=== PATIENT | female | born 1950 | race Caucasian/White ===

== ENCOUNTER 2016-06-29 14:48 | Outpatient (CLI) | payer BC | END 2016-06-29 14:49 | disposition home or self-care (01) | DX: Z12.31 Encounter for screening mammogram for malignant neoplasm of breast (principal) ==

== ENCOUNTER 2016-09-21 12:22 | Outpatient (CLI) | payer BC ==
--- NOTE | 2016-09-22 07:36 | XRAY Report ---
RIGHT ANKLE, THREE VIEWS: 09/21/2016 CLINICAL HISTORY: Pain. FINDINGS: Moderate degree of narrowing of the right ankle joint is seen. Spurring is seen along the inferior aspect of the medial malleolus. Spurring is seen along the lateral aspect of the distal ri ght fibular shaft. Mild subchondral cyst formation is seen in the talar dome, especially medially. Small plantar calcaneal spur is noted. IMPRESSION: 1. MODERATE DEGREE OF OSTEOARTHRITIS OF THE RIGHT ANKLE. 2. SMALL PLANTAR CALCANEAL SPUR IS SEEN. 3. EXAMINATION IS NEGATIVE FOR ACUTE FRACTURE. COMMENT: Dr. Degroot, patient's physician, was notified of the above findings on 09/21/2016 at 5:3 0 p.m. JOB #: [id number] EXT JOB #:[id number]
== END 2016-09-21 12:23 | disposition home or self-care (01) ==
LOC: DI 12:22
PROVIDERS: ATTEND Internal Medicine
DX: M19.071 Primary osteoarthritis, right ankle and foot (principal); M77.31 Calcaneal spur, right foot

== ENCOUNTER 2016-09-25 11:23 | Emergency (ER) | payer BC ==
--- NOTE | 2016-09-25 11:42 | ED Physician Documentation ---
PD HPI CHEST PAIN - Stated complaint Stated Complaint: CHEST PX - History obtained from History obtained from: Patient - History of Present Illness Timing - onset: How many hours ago (2) Timing - onset during: Exertion Timing - duration: Minutes (5) Timing - details: Now resolved Quality: Dull Location: Substernal Improved by: Rest Associated symptoms: Nausea. No: Shortness of air, Diaphoresis, Vomiting Similar symptoms before: No diagnosis - Additional information Additional information: The patient is a pleasant 66-year-old female who presents after a five-minute episode of substernal chest discomfort that occurred about 2 hours prior to arrival while performing exercises in an exercise class. She describes it as a dull aching sensation in the substernal region. She reports associated nausea, but denies vomiting, diaphoresis, or shortness of breath. Her symptoms lasted for about 5 minutes and resolved spontaneously with rest. After her symptoms resolved she rejoined the class and finished the exercises without recurrent symptoms. She reports having similar episodes 3 times in the past 2 weeks. She denies any recent fever, cough, abdominal pain, or vomiting. Cardiac risk factors are positive for insulin-dependent diabetes, hypertension, and borderline hyperlipidemia. She does not smoke cigarettes, and has no known family history of early NE. Review of Systems Constitutional: denies: Fever, Fatigue Ears: denies: Tinnitus/ringing Nose: denies: Congestion Throat: denies: Sore throat Cardiac: reports: Chest pain / pressure. denies: Palpitations Respiratory: denies: Dyspnea, Cough GI: denies: Abdominal Pain, Vomiting, Diarrhea : denies: Dysuria Skin: denies: Rash Musculoskeletal: denies: Back pain, Extremity pain Neurologic: denies: Headache PD PAST MEDICAL HISTORY - Past Medical History Cardiovascular: Hypertension, High cholesterol, Murmur Endocrine/Autoimmune: Type 2 diabetes HEENT: Other - Present Medications Home Medications: Ambulatory Orders Medication Instructions Recorded Confirmed Atorvastatin [Lipitor] 10 mg PO DAILY 07/29/15 04/30/16 Insulin Lispro [Humalog] 1 - 4 unit SUBQ TIDWM 07/29/15 04/30/16 Meclizine HCl [Antivert] 25 mg PO QID PRN #15 tablet 07/29/15 04/30/16 Ondansetron HCl [Zofran] 4 mg PO Q6H PRN #10 tablet 07/29/15 04/30/16 Oxycodone HCl/Acetaminophen 1 - 2 tab PO Q4H PRN #15 tablet 07/29/15 04/30/16 [Percocet 5-325 mg Tablet] metFORMIN [Glucophage] 500 mg PO BIDWM 07/29/15 04/30/16 Amlodipine Besylate [Norvasc] 2.5 mg PO DAILY 11/21/15 04/30/16 Esomeprazole Magnesium [Nexium] 40 mg PO DAILY PRN 11/21/15 04/30/16 Insulin Degludec [Tresiba 6 - 7 unit SQ QPM 11/21/15 04/30/16 Flextouch U-100] Thyroid [Kirvin Thyroid] 60 mg PO DAILY 11/21/15 04/30/16 Nitroglycerin [Nitrostat] 0.4 mg SL Q5MIN PRN #25 tablet 09/25/16 - Allergies Allergies/Adverse Reactions: Allergies Allergy/AdvReac Type Severity Reaction Status Date / Time No Known Drug Allergies Allergy Verified 07/29/15 12:27 - Social History Does the pt smoke?: No Smoking Status: Never smoker Does the pt drink ETOH?: No Does the pt have substance abuse?: No PD ED PE NORMAL - Vitals Vital signs reviewed: Yes (Borderline systolic hypertension.) - General General: Alert and oriented X 3, Well developed/nourished - HEENT HEENT: Atraumatic, EOMI, Pharynx benign - Neck Neck: No adenopathy, No JVD - Cardiac Cardiac: RRR, No murmur - Respiratory Respiratory: No respiratory distress, Clear bilaterally, Other (No chest wall tenderness to palpation.) - Abdomen Abdomen: Soft, Non tender, No organomegaly, Other (Scaphoid abdomen.) - Back Back: No CVA TTP - Derm Derm: No rash - Extremities Extremities: No edema, No calf tenderness / cord - Neuro Neuro: Alert and oriented X 3, No motor deficit, No sensory deficit Results - Vitals Vitals: Oxygen O2 Source Room air - EKG (time done) 11:31 Rate: Rate (enter#) (90) Rhythm: NSR [place]: Normal Intervals: Normal DE QRS: Normal Ischemia: ST depression (Minimal ST depression anterolateral leads.) Compare to prior EKG: Old EKG unavailable Computer interpretation: Agree with computer - Labs Labs: Laboratory Tests 09/25/16 09/25/16 09/25/16 12:07 12:07 12:07 WBC 9.7 RBC 4.55 Hgb 11.5 L Hct 34.6 L MCV 76.2 L MCH 25.2 L MCHC 33.1 RDW 14.6 Plt Count 153 MPV 8.9 Neut # 7.2 H Lymph # 1.6 [place] # 0.5 Eos # 0.4 Baso # 0.1 Absolute Nucleated RBC 0.01 Nucleated RBCs 0.1 Sodium 138 Potassium 4.8 Chloride 104 Carbon Dioxide 28 Anion Gap 6.0 BUN 18 Creatinine 0.8 Estimated GFR (MDRD) 72 L Glucose 164 H Calcium 9.1 Total Bilirubin 0.7 AST 27 ALT 19 Alkaline Phosphatase 52 Troponin I 0.08 Total Protein 6.1 L Albumin 4.1 Globulin 2.0 L Albumin/Globulin Ratio 2.0 Lipase 20 L - Rads (name of study) 1-view CXR Radiology: Prelim report reviewed, EMP read contemporaneously, See rad report ( Normal single view chest.) PD MEDICAL DECISION MAKING - ED course Complexity details: reviewed results, re-evaluated patient, considered differential, d/w patient, d/w family, d/w oim consultant ED course: The patient's presentation is significant for brief chest discomfort which is consistent with angina, although it could just as likely be of a gastroesophageal etiology. Given her cardiac risk factors, including insulin- dependent diabetes, the risk of cardiac etiology for her symptoms is increased. Her presentation does not suggest acute myocardial infarction, and it seems reasonable to pursue further workup on an outpatient basis. I discussed her presentation with her brick cleaner at [facility], and he advises that the patient was seen 1 week ago and had not reported any symptoms at that time. He agrees to see her in follow-up for further evaluation. She is being discharged with prescription for sublingual nitroglycerin, which she will have if she develops recurrent symptoms. I discussed with her and her the diagnosis , outpatient follow-up, as well as potentially worrisome signs or symptoms that should prompt reevaluation in the emergency department. Departure - Departure Disposition: 01 Home, Self Care Clinical Impression: Chest pain Qualifiers: Chest pain type: unspecified Qualified Code(s): R07.9 - Chest pain, unspecified Condition: Stable Instructions: ED Heart Disease Risk Factors, Nitroglycerin Fast Act Dc Follow-Up: Bobbi Degroot MD [Primary Care Provider] - Lamine Erickson MD [Physician No Access] - Prescriptions: Nitroglycerin [Nitrostat] 0.4 mg SL Q5MIN PRN #25 tablet PRN Reason: Angina Comments: 1. Follow-up with your brick cleaner. Call today to schedule the soonest available appointment. 2. If you develop recurrent chest pain, takes sublingual nitroglycerin. If it is not relieved within 5 minutes take a second sublingual nitroglycerin and called 911. 3. Return to the emergency department if you develop increasing chest pain, shortness of breath, or otherwise worsening symptoms. Discharge Date/Time: 09/25/16 14:58
[2016-09-25 12:15] LABS: BASOPHILS # (AUTO) 0.1 10^3/uL (0.0-0.1); BASOPHILS % (AUTO) 0.8 %; EOSINOPHILS # (AUTO) 0.4 10^3/uL (0.0-0.7); EOSINOPHILS % (AUTO) 4.4 %; HCT - HEMATOCRIT 34.6 % (37.0-47.0); HGB - HEMOGLOBIN 11.5 g/dL (12.0-16.0); LYMPHOCYTES # (AUTO) 1.6 10^3/uL (1.5-3.5); LYMPHOCYTES % (AUTO) 16.2 %; MEAN CORPUSCULAR HEMOGLOBIN 25.2 pg (27.0-31.0); MEAN CORPUSCULAR HGB CONC 33.1 g/dL (32.0-36.0); MEAN CORPUSCULAR VOLUME 76.2 fL (81.0-99.0); MEAN PLATELET VOLUME 8.9 fL (7.9-10.8); MONOCYTES # (AUTO) 0.5 10^3/uL (0.0-1.0); MONOCYTES % (AUTO) 4.8 %; NEUTROPHILS # (AUTO) 7.2 10^3/uL (1.5-6.6); NEUTROPHILS % (AUTO) 73.8 %; NUCLEATED RED BLOOD CELLS AUTO 0.1 /100WBC; RED BLOOD COUNT 4.55 10^6/uL (4.20-5.40); RED CELL DISTRIBUTION WIDTH 14.6 % (12.0-15.0); UNCORRECTED WHITE BLOOD COUNT 9.7 x10^3/uL; WHITE BLOOD COUNT 9.7 x10^3/uL (4.8-10.8)
--- NOTE | 2016-09-25 12:28 | XRAY Preliminary Report ---
Exam: XR Chest 1 View IMPRESSION: Normal single view chest. [facility] SITE ID: [id number]
[2016-09-25 12:30] LABS: BILIRUBIN,TOTAL 0.7 mg/dL (0.2-1.0); CALCIUM 9.1 mg/dL (8.5-10.3); CREATININE 0.8 mg/dL (0.4-1.0); POTASSIUM 4.8 mmol/L (3.5-5.0); TOTAL PROTEIN 6.1 g/dL (6.7-8.2)
--- NOTE | 2016-09-25 12:54 | XRAY Report ---
EXAM: CHEST RADIOGRAPHY EXAM DATE: 09/25/2016 12:12 PM. CLINICAL HISTORY: Chest pain. COMPARISON: None. TECHNIQUE: 1 view. FINDINGS: Lungs/Pleura: No focal opacities evident. No pleural effusion. No pneumothorax. Mediastinum: Within exam limitations, cardiomediastinal contour is normal. Other: None. IMPRESSION: Normal single view chest. [facility] Referring Provider Line: [phone] SITE ID: [id number]
[2016-09-25 14:57] VITALS: BP 139/60
== END 2016-09-25 14:58 | disposition home or self-care (01) ==
LOC: ED 11:23
DX: R07.9 Chest pain, unspecified (principal); E11.8 Type 2 diabetes mellitus with unspecified complications; Z79.4 Long term (current) use of insulin; I10 Essential (primary) hypertension
CPT/HCPCS: 36415; 71010; 80053; 83690; 84484; 85025; 93005; 99283; 99284

== ENCOUNTER 2017-06-29 12:22 | Outpatient (CLI) | payer BC ==
--- NOTE | 2017-06-30 14:45 | Mammography Report ---
SCREENING DIGITAL MAMMOGRAM: 06/29/2017 CLINICAL INDICATION: A 67-year-old for screening. COMPARISON: 06/2016, 05/2015, 05/2014, 05/2013, 09/2011, 02/2010. FINDINGS: The breasts demonstrate heterogeneously dense fibroglandular parenchyma bilaterally. Coarse and punctate, typically benign calcifications are present. No suspicious masses, clustered microcalcifications, or regions of architectural distortion are identified. IMPRESSION: BENIGN FINDINGS. RECOMMENDATION: Routine annual screening unless otherwise clinically indicated. BIRADS CATEGORY 2 - BENIGN FINDINGS. STANDARD QUALIFYING STATEMENTS 1. This examination was reviewed with the aid of Computed Aided Detection (CAD). 2. A negative x-ray report should not delay biopsy if a dominant or clinically suspicious mass is present. More than 5% of cancers are not identified by x-ray. 3. Dense breasts may obscure an underlying neoplasm. TD: 06/30/2017 14:44 MTDD
== END 2017-06-29 12:23 | disposition home or self-care (01) ==
LOC: DI 12:22
PROVIDERS: ATTEND Internal Medicine
DX: Z12.31 Encounter for screening mammogram for malignant neoplasm of breast (principal)
CPT/HCPCS: 77067

== ENCOUNTER 2017-07-01 08:09 | Outpatient (CLI) | payer BC ==
[2017-07-01 09:43] LABS: % IRON SATURATION 16 % (20-50); IRON 56 ug/dL (28-170); TOTAL IRON BINDING CAPACITY 361 ug/dL (250-450); TRANSFERRIN 258 mg/dL (192-382)
[2017-07-01 10:00] LABS: THYROID STIMULATING HORMONE 1.48 uIU/mL (0.34-5.60)
[2017-07-01 10:02] LABS: FREE T4 (FREE THYROXINE) 0.78 ng/dL (0.58-1.64)
[2017-07-01 10:07] LABS: TOTAL T3 1.54 ng/mL (0.87-1.78)
[2017-07-05 10:36] LABS: THYROID PEROXIDASE ANTIBODIES 1 IU/mL (<9)
== END 2017-07-01 08:10 | disposition home or self-care (01) ==
LOC: LAB 08:09
PROVIDERS: ATTEND Internal Medicine Endocrinology, Diabetes & Metabolism
DX: L65.9 Nonscarring hair loss, unspecified (principal); R71.8 Other abnormality of red blood cells; E03.9 Hypothyroidism, unspecified; I10 Essential (primary) hypertension; E11.65 Type 2 diabetes mellitus with hyperglycemia; T38.3X5A Adverse effect of insulin and oral hypoglycemic [antidiabetic] drugs, initial encounter
CPT/HCPCS: 36415; 82175; 82570; 82607; 83540; 83655; 83825; 84439; 84443; 84466; 84480; 86376; 86800

== ENCOUNTER 2017-09-28 08:10 | Outpatient (CLI) | payer BC ==
[2017-09-28 08:57] LABS: ALBUMIN 4.3 g/dL (3.2-5.5); ALBUMIN/GLOBULIN RATIO 1.8 (1.0-2.2); ALKALINE PHOSPHATASE 60 IU/L (42-121); ALT ALANINE AMINOTRANSFERASE 23 IU/L (10-60); AST ASPARTATE AMINOTRANSFERASE 26 IU/L (10-42); BUN - BLOOD UREA NITROGEN 18 mg/dL (6-20); CALCIUM 9.5 mg/dL (8.5-10.3); CARBON DIOXIDE - CO2 30 mmol/L (21-32); CHLORIDE 103 mmol/L (101-111); CHOL/HDL RATIO 2.2 (<4.4); CHOLESTEROL 121 mg/dL; CREATININE 0.8 mg/dL (0.4-1.0); GFR - MDRD 72 (>89); GLUCOSE 91 mg/dL (70-100); HDL CHOLESTEROL 55 mg/dL; LDL CHOLESTEROL,CALCULATED 56 mg/dL; SODIUM 139 mmol/L (135-145); TOTAL PROTEIN 6.7 g/dL (6.7-8.2); VLDL CHOLESTEROL 10 mg/dL
[2017-09-28 11:27] LABS: HB2 TOTAL 14.5 g/dL; HEMOGLOBIN A1C 0.9 g/dL; HEMOGLOBIN A1C % 7.8 % (4.6-6.2)
== END 2017-09-28 08:11 | disposition home or self-care (01) ==
LOC: LAB 08:10
PROVIDERS: ATTEND Internal Medicine Cardiovascular Disease
DX: I25.10 Atherosclerotic heart disease of native coronary artery without angina pectoris (principal); E78.5 Hyperlipidemia, unspecified; I10 Essential (primary) hypertension; Z95.5 Presence of coronary angioplasty implant and graft; E11.9 Type 2 diabetes mellitus without complications
CPT/HCPCS: 36415; 80053; 80061; 83036; 83721

== ENCOUNTER 2018-03-31 08:16 | Outpatient (CLI) | payer BC ==
[2018-03-31 08:51] LABS: ALBUMIN 4.1 g/dL (3.2-5.5); ALBUMIN/GLOBULIN RATIO 1.8 (1.0-2.2); ALKALINE PHOSPHATASE 62 IU/L (42-121); ALT ALANINE AMINOTRANSFERASE 29 IU/L (10-60); AST ASPARTATE AMINOTRANSFERASE 30 IU/L (10-42); BILIRUBIN,TOTAL 0.8 mg/dL (0.2-1.0); BUN - BLOOD UREA NITROGEN 15 mg/dL (6-20); CALCIUM 9.3 mg/dL (8.5-10.3); CARBON DIOXIDE - CO2 30 mmol/L (21-32); CHLORIDE 102 mmol/L (101-111); CHOL/HDL RATIO 2.1 (<4.4); CHOLESTEROL 147 mg/dL; CREATININE 0.7 mg/dL (0.4-1.0); GFR - MDRD 83 (>89); GLUCOSE 130 mg/dL (70-100); HDL CHOLESTEROL 71 mg/dL; LDL CHOLESTEROL,CALCULATED 58 mg/dL; LDL/HDL RATIO 0.8 (<4.4); SODIUM 139 mmol/L (135-145); TOTAL PROTEIN 6.4 g/dL (6.7-8.2); VLDL CHOLESTEROL 18 mg/dL
[2018-03-31 19:17] LABS: HB2 TOTAL 14.4 g/dL; HEMOGLOBIN A1C 0.73 g/dL; HEMOGLOBIN A1C % 6.8 % (4.6-6.2)
[2018-04-01 07:21] LABS: PROGESTERONE 1.2 ng/mL
== END 2018-03-31 08:17 | disposition home or self-care (01) ==
LOC: LAB 08:16
PROVIDERS: ATTEND Internal Medicine Cardiovascular Disease
DX: E03.9 Hypothyroidism, unspecified (principal); N95.1 Menopausal and female climacteric states; I25.10 Atherosclerotic heart disease of native coronary artery without angina pectoris; E78.5 Hyperlipidemia, unspecified; I10 Essential (primary) hypertension; Z95.5 Presence of coronary angioplasty implant and graft
CPT/HCPCS: 36415; 80053; 80061; 82627; 83036; 83721; 84144; 84443

== ENCOUNTER 2018-10-19 13:54 | Outpatient (CLI) | payer BC ==
--- NOTE | 2018-10-20 09:47 | Mammography Report ---
Reason: ENCNTR SCREEN MAMMOGRAM FOR MALIGNANT NEOPLASM OF Procedure Date: 10/19/2018 Accession Number: [id number] / [id number] Procedure: JOSE - Screening Mammo w/Peter CPT Code: FULL RESULT: EXAM: Screening Mammo w/Peter DATE: 10/19/2018 2:29 PM CLINICAL HISTORY: Screening encounter. TECHNIQUE: (B) - Bilateral CC, laterally exaggerated CC, MLO views were obtained. COMPARISON: 06/29/2017 through 05/11/2014. PARENCHYMAL PATTERN: (D) - The breast(s) demonstrate(s) heterogeneously dense fibroglandular parenchyma. FINDINGS: There are typically benign vascular and coarse calcifications. There are no suspicious masses, calcifications, or areas of distortion. IMPRESSION: Benign findings. BI-RADS category 2. RECOMMENDATION: (ANNUAL) - Recommend routine annual screening mammography. BI-RADS CATEGORY: (2) - Benign Findings. STANDARD QUALIFYING STATEMENTS: 1. This examination was not reviewed with the aid of Computer-Aided Detection (CAD). 2. A negative or benign imaging report should not preclude biopsy if clinically suspicious findings are present. 3. Dense breasts may obscure an underlying neoplasm. 4. This examination was reviewed with the aid of 3D breast imaging (tomosynthesis).
== END 2018-10-19 13:55 | disposition home or self-care (01) ==
LOC: DI 13:54
PROVIDERS: ATTEND Internal Medicine
DX: Z12.31 Encounter for screening mammogram for malignant neoplasm of breast (principal)
CPT/HCPCS: 77063; 77067

== ENCOUNTER 2019-12-14 14:58 | Outpatient (CLI) | payer BC ==
--- NOTE | 2019-12-14 17:12 | Ultrasound Report ---
PROCEDURE: Pelvic w/Transvaginal INDICATIONS: VAGINAL BLEEDING TECHNIQUE: Real-time scanning was performed of the pelvic organs, with image documentation. Additional endovagi nal scanning was necessary due to incomplete visualization of the adnexal and endometrial structures by transabdominal scanning. COMPARISON: None. FINDINGS: Transabdominal scanning: Limited scanning through the kidneys shows no hydronephrosis. No pathologi c free abdominal or pelvic fluid. Endovaginal scanning: Uterus: Uterus is anteverted and normal in size at 8.1 x 4.2 x 5.8 cm. The endometrium is not seen secondary to distal fibula were circumscribed, heterogeneous, shadowing round mass measuring 3.9 x 2. 8 x 3.6 cm with internal vascularity located centrally in the uterus. Ovaries: The right ovary was not seen. The left ovary measures 2.7 x 2.1 x 1.6 m and has a normal ec hotexture. No suspicious adnexal masses or free fluid. IMPRESSION: 1. Obscured endometrial stripe secondary to a 3.9 cm central, probably submucosal uterine mass, most likely a fibroid. While fibroid degeneration may be a source of bleeding, underlying neoplasm cannot be excluded. Reviewed by: Neisha Green MD on 12/14/2019 5:11 PM PDT Approved by: Neisha Green MD on 12/14/2019 5:11 PM PDT Station ID: [id number]
== END 2019-12-14 14:59 | disposition home or self-care (01) ==
LOC: DI 14:58
PROVIDERS: ATTEND Internal Medicine
DX: R93.89 Abnormal findings on diagnostic imaging of other specified body structures (principal)
CPT/HCPCS: 76830; 76856

== ENCOUNTER 2020-02-09 14:01 | Outpatient (CLI) | payer BC ==
[2020-02-09 14:53] LABS: BASOPHILS # (AUTO) 0.1 10^3/uL (0.0-0.1); BASOPHILS % (AUTO) 0.7 %; EOSINOPHILS # (AUTO) 0.7 10^3/uL (0.0-0.7); EOSINOPHILS % (AUTO) 9.3 %; HGB - HEMOGLOBIN 12.6 g/dL (12.0-16.0); LYMPHOCYTES # (AUTO) 2.1 10^3/uL (1.5-3.5); LYMPHOCYTES % (AUTO) 28.8 %; MEAN CORPUSCULAR HEMOGLOBIN 27.9 pg (27.0-31.0); MEAN CORPUSCULAR HGB CONC 33.5 g/dL (32.0-36.0); MEAN CORPUSCULAR VOLUME 83.4 fL (81.0-99.0); MEAN PLATELET VOLUME 11.3 fL (7.9-10.8); MONOCYTES # (AUTO) 0.4 10^3/uL (0.0-1.0); NEUTROPHILS % (AUTO) 54.9 %; PLT - PLATELET COUNT 154 10^3/uL (130-450); RED BLOOD COUNT 4.51 10^6/uL (4.20-5.40); RED CELL DISTRIBUTION WIDTH 13.2 % (12.0-15.0); WHITE BLOOD COUNT 7.3 x10^3/uL (4.8-10.8)
== END 2020-02-09 14:02 | disposition home or self-care (01) ==
LOC: LAB 14:01
PROVIDERS: ATTEND Obstetrics & Gynecology
DX: Z01.812 Encounter for preprocedural laboratory examination (principal); N95.0 Postmenopausal bleeding; Z20.828 Contact with and (suspected) exposure to other viral communicable diseases
CPT/HCPCS: 36415; 85025

== ENCOUNTER 2020-02-14 06:28 | Day surgery (SDC) | payer BC ==
[~2020-02-14 06:28] MED LIST: ACETAMINOPHEN 1,000 MG/100 ML 100 ML IV ONE; CELECOXIB 100 MG CAPSULE PO ONE; GABAPENTIN 400 MG CAPSULE ONE
[2020-02-14] MEDS ORDERED: LACTATED RINGERS 1,000 ML IV ONE ×2 (06:56→09:25)
--- NOTE | 2020-02-14 07:08 | ANESTHESIA ---
Pre-Anesthesia VS, & Labs - Diagnosis post menopausal bleeding - Procedure hysterscopy, D&C Vital Signs: Temp Pulse Resp BP Pulse Ox 36.5 C 77 14 135/64 H 99 02/14/20 06:38 02/14/20 06:38 02/14/20 06:38 02/14/20 06:38 02/14/20 06:38 Height: 5 ft 3 in Weight (kg): 59.6 kg Body Mass Index: 23.3 BMI Classification: Healthy weight - NPO >8 hours - Is Patient ?: No - Lab Results Current Lab Results: Laboratory Tests 02/14/20 06:53: POC Whole Bld Glucose 155 H Home Medications and Allergies Home Medications: Ambulatory Orders Alprazolam [Xanax] 0.25 mg PO Q8HR PRN 02/06/20 Esomeprazole Magnesium [Nexium] 40 mg PO DAILY 02/06/20 Insulin Degludec [Tresiba Flextouch U-100] 7 unit SUBQ QPM 02/06/20 Lisinopril [Zestril] 40 mg PO DAILY 02/06/20 Atorvastatin [Lipitor] 20 mg PO DAILY 07/29/15 Insulin Lispro [Humalog] 1 - 4 unit SUBQ TIDWM 07/29/15 metFORMIN [Glucophage] 50 mg PO BID 07/29/15 Amlodipine Besylate [Norvasc] 5 mg PO DAILY 11/21/15 Thyroid [Earle Thyroid] 60 mg PO DAILY 11/21/15 Alprazolam [Xanax] 0.25 mg PO Q8HR PRN 02/06/20 Esomeprazole Magnesium [Nexium] 40 mg PO DAILY 02/06/20 Insulin Degludec [Tresiba Flextouch U-100] 7 unit SUBQ QPM 02/06/20 Lisinopril [Zestril] 40 mg PO DAILY 02/06/20 Allergies/Adverse Reactions: Allergies Allergy/AdvReac Type Severity Reaction Status Date / Time No Known Drug Allergies Allergy Verified 07/29/15 12:27 Anes History & Medical History - Medical History Cardiovascular: reports: Hypertension, High cholesterol, Coronary artery disease Pulmonary: reports: None Gastrointestinal: reports: GERD Urinary: reports: None Neuro: reports: None Musculoskeletal: reports: None Endocrine/Autoimmune: reports: Type 2 diabetes, HyPOthyroidism Blood Disorders: reports: None Skin: reports: None Smoking Status: Never smoker Psychosocial: reports: No issues indicated History of Cancer?: No - Surgical History General: Appendectomy, Colonoscopy, EGD Cardiothoracic: Coronary stent Orthopedic: Arthroscopic surgery, Other Exam General: Alert, Oriented x3, Cooperative, No acute distress Dental: WNL Mouth Openin Fingerbreadth Neck Mobility: Normal Mallampati classification: II Thyromental Distance: 4-6 cm Mental/Cognitive Status: Alert/Oriented X3, Normal for patient Plan Anesthesia Type: General, MAC Consent for Procedure(s) Verified and Reviewed: Yes Code Status: Attempt Resuscitation ASA classification: 3-Severe systemic disease Is this case an emergency?: No
[2020-02-14] MEDS ORDERED: BUPIVACAINE 0.5% PF 30 ML VIAL ONE (07:16)
[2020-02-14] MEDS ORDERED: SILVER NITRATE APPLICATOR TOP ONE (07:16)
[2020-02-14] MEDS ORDERED: ACETAMINOPHEN 1,000 MG/100 ML 100 ML IV ONE (07:49)
[2020-02-14] MEDS ORDERED: MIDAZOLAM 2 MG/2 ML VIAL IVP ONE (07:49)
[2020-02-14] MEDS ORDERED: PROPOFOL 200 MG/20 ML VIAL IVP ONE (07:49)
[2020-02-14] MEDS ORDERED: fentaNYL 100 MCG/2 ML VIAL IVP ONE (07:49)
[2020-02-14] MEDS: BUPIVACAINE 0.5%-EPI 1:200000 PF 30 ML VIAL ONE ×2 (08:10→08:18)
[2020-02-14] MEDS ORDERED: oxyCODONE 5 MG TABLET PO PRN (09:31)
--- NOTE | 2020-02-14 09:54 | OPERATIVE REPORT ---
Operative Report - General Procedure Date: 02/14/20 Planned Procedure: Hysteroscopy D&C with possible polypectomy/myomectomy Pre-Op Diagnosis: Postmenopausal bleeding. 3.9 cm mass on us Procedure Performed: Hysteroscopy D&C with cervical polypectomy and myomectomy Post Op Diagnosis: Same - Procedure Note Primary Surgeon: Yandy Wilhelm MD Anesthesia Provider: Sheridan Montes CRNA Anesthesia Technique: Local, MAC Pathology: Uterine contents Cervical polyp, D&C, and uterine contents collected via myomectomy were sent as one sample IV Fluids (mL): 500 (see Anesthesia note. Add'l 1640 cc ND via fluid deficit) Estimated Blood Loss (mL): 5 Urine Output (mL): 25 Indications: Patient is a 69-year-old G6, P7 here for for hysteroscopy D&C/polpypectomy for postmenopausal bleeding. Patient reported that she had vaginal bleeding in early December. The bleeding went on for about 1 week. Of note she had been on Plavix due to stent placement in 2016 after blockage of her LAD. She has since stopped her Plavix for this an another procedure and is taking ASA only. She is able to take NSAIDS postop since she is off Plavix. She underwent a pelvic ultrasound on 12/14/2019 that showed the endometrium was not well seen secondary to a circumscribed heterogeneous shadowing round mass measuring 3.9 x 2.8 x 3.6 with internal vascularity located centrally within the uterus. This was read as likely submucosal uterine fibroid but underlying neoplasm cannot be excluded. Her past medical history is notable for diabetes for which she manages on insulin. Most recent HbA1c was 6.3% and was assessed abou3 months ago. Also endorses HTN and reflux She has ad 5 vaginal deliveries and then a for twin gestation. Does to recall and abnormal pap but her recalls a colposcopy with EMB, s uggesting possible MAGDIEL. No STIs and no PCB. Findings: Cervical polyp measuring about 1 cm. Uterine cavity showed large 5-6 cm calcified pedunculated fibroid. Tubal ostia noted after partial morcellation of fibroid. Small polypoid mass posterior to fibroid. Complications: None. Discontinued procedure due to fluid deficit. - Other Other Information/Narrative: Risks benefits and alternatives to the procedure were reviewed. Consent was again confirmed. Patient was taken to the operating room where she underwent general anesthesia. She was positioned in dorsolithotomy position with legs resting in yellowfin stirrups. She was prepped and draped in the usual sterile fashion. Preoperative antibiotics were not indicated. Preoperative checklist was performed. Exam under anesthesia was performed. Speculum was placed in the vagina and the cervix was visualized. Single-tooth tenaculum was placed at the anterior cervical lip. Paracervical block was administered using a total of 20 cc of 0.5% bupivicaine with epinephrine was injected at the 4:00 and 8:00 positions lateral to the portio of the cervix. A small cervical polyp was noted and removed with ring forceps. The cervical os was serially dilated with Hegar dilators to accommodate the caliber of the diagnostic hysteroscope. Uterus sounded to 9 cm. The hysteroscope was inserted and findings were noted as above. The hysteroscopic morcellator was inserted through the operative port. A large, minimally 5-6 cm pedunculated calcified fibroid was noted, incorporating all of the uterine cavity. After partial morcellation was completed, some small polyps were noted in the posterior uterine cavity. The polyps were morcellated under direct visualization. The fibroid was morcellated under direct visualization. About 75% of the fibroid was removed before we met a fluid deficit of 1640 mL. Given patient history of ME, diabetes, and lower BMI, the decision was made to stop the procedure to avoid complications of fluid overload. Hysteroscope was removed. Sharp curettage D&C was performed with sharp curettage. All instruments were removed from the uterus. Tenaculum was removed. Tenaculum sites were noted to be hemostatic. All instruments were removed from the vagina. Procedure was well-tolerated without complication. Fluid deficit: 1640 cc NS
[2020-02-14 10:14] VITALS: BP 114/60
--- NOTE | 2020-02-14 10:22 | ANESTHESIA POST OP EVALUATION ---
Anesthesia Post Eval - Post Anesthesia Eval Vitals: Last Vital Signs Temp 36.3 C L 02/14/20 10:14 Pulse 73 02/14/20 10:14 Resp 16 02/14/20 10:14 BP 114/60 02/14/20 10:14 Pulse Ox 95 02/14/20 10:14 CV Function Including HR & BP: positive: Stable Pain Control: positive: Satisfactory Nausea & Vomiting: positive: Negative Mental Status: positive: Baseline Respiratory Status: Airway Patent Hydration Status: Satisfactory Anesthesia Complications: positive: None
== END 2020-02-14 06:29 | disposition home or self-care (01) ==
LOC: SDS 06:28
PROVIDERS: ATTEND Obstetrics & Gynecology
PROC: 0UB98ZZ Excision of Uterus, Via Natural or Artificial Opening Endoscopic (ICD-10-PCS; principal; 2020-02-14 07:30)
DX: D25.0 Submucous leiomyoma of uterus (principal); N84.1 Polyp of cervix uteri; E11.9 Type 2 diabetes mellitus without complications; I10 Essential (primary) hypertension; K21.9 Gastro-esophageal reflux disease without esophagitis; I25.2 Old myocardial infarction; Z95.5 Presence of coronary angioplasty implant and graft; Z79.82 Long term (current) use of aspirin; Z79.4 Long term (current) use of insulin; Z79.899 Other long term (current) drug therapy

== ENCOUNTER 2020-05-06 06:44 | Outpatient (CLI) | payer MEDICARE, OTHER ==
--- NOTE | 2020-05-06 15:42 | Ultrasound Report ---
PROCEDURE: Abdomen Limited INDICATIONS: RUQ PAIN TECHNIQUE: Real-time scanning was performed of the abdominal and retroperitoneal organs, with image documentatio n. COMPARISON: None. FINDINGS: Liver: Liver is enlarged measuring 18.8 cm. There is diffuse increased echogenicity.. Gallbladder: Biliary ducts: Intrahepatic bile ducts are non-dilated. Extrahepatic bile duct caliber measures 3.2 mm. Normal is 6-7 mm or less in diameter, or 10 mm or less post-cholecystectomy. Pancreas: Visualized portions of the pancreas are sonographically normal. Kidneys: Kidneys are normal in size and echotexture. Right kidney measures 9.4 cm long. No hydrone phrosis or nephrolithiasis. No solid masses. IMPRESSION: 1. The gallbladder is unremarkable. 2. Hepatomegaly with steatosis. Reviewed by: Brittney Rutherford MD on 05/06/2020 3:40 PM PST Approved by: Brittney Rutherford MD on 05/06/2020 3:40 PM PST Station ID: [id number]
== END 2020-05-06 06:45 | disposition home or self-care (01) ==
LOC: DI 06:44
PROVIDERS: ATTEND Internal Medicine
DX: K76.0 Fatty (change of) liver, not elsewhere classified (principal); R10.11 Right upper quadrant pain

== ENCOUNTER 2020-05-17 07:50 | Outpatient (CLI) | payer MEDICARE, OTHER ==
[2020-05-17 16:43] LABS: H. PYLORIS ANTIGEN STL NEGATIVE (Negative)
== END 2020-05-17 23:59 | disposition home or self-care (01) ==
LOC: LAB.R 07:50
PROVIDERS: ATTEND Internal Medicine
DX: K27.9 Peptic ulcer, site unspecified, unspecified as acute or chronic, without hemorrhage or perforation (principal)
CPT/HCPCS: 87338

== ENCOUNTER 2020-07-12 08:56 | Outpatient (CLI) | payer MEDICARE, OTHER ==
[2020-07-12 09:12] LABS: BASOPHILS # (AUTO) 0.1 10^3/uL (0.0-0.1); BASOPHILS % (AUTO) 1.3 %; EOSINOPHILS # (AUTO) 0.3 10^3/uL (0.0-0.7); EOSINOPHILS % (AUTO) 4.8 %; HCT - HEMATOCRIT 41.6 % (37.0-47.0); HGB - HEMOGLOBIN 13.8 g/dL (12.0-16.0); LYMPHOCYTES # (AUTO) 1.9 10^3/uL (1.5-3.5); MEAN CORPUSCULAR HEMOGLOBIN 27.8 pg (27.0-31.0); MEAN CORPUSCULAR HGB CONC 33.2 g/dL (32.0-36.0); MEAN CORPUSCULAR VOLUME 83.9 fL (81.0-99.0); MEAN PLATELET VOLUME 11.4 fL (7.9-10.8); MONOCYTES # (AUTO) 0.5 10^3/uL (0.0-1.0); MONOCYTES % (AUTO) 7.8 %; NEUTROPHILS # (AUTO) 3.3 10^3/uL (1.5-6.6); NEUTROPHILS % (AUTO) 53.9 %; PLT - PLATELET COUNT 133 10^3/uL (130-450); RED BLOOD COUNT 4.96 10^6/uL (4.20-5.40); RED CELL DISTRIBUTION WIDTH 13.2 % (12.0-15.0)
[2020-07-12 09:31] LABS: ALBUMIN 4.9 g/dL (3.2-5.5); ALBUMIN/GLOBULIN RATIO 2.2 (1.0-2.2); ALKALINE PHOSPHATASE 69 IU/L (42-121); ALT ALANINE AMINOTRANSFERASE 26 IU/L (10-60); AST ASPARTATE AMINOTRANSFERASE 27 IU/L (10-42); BILIRUBIN,TOTAL 0.9 mg/dL (0.2-1.0); BUN - BLOOD UREA NITROGEN 15 mg/dL (6-20); CALCIUM 9.9 mg/dL (8.5-10.3); CARBON DIOXIDE - CO2 28 mmol/L (21-32); CHLORIDE 104 mmol/L (101-111); CHOL/HDL RATIO 2.1 (<4.4); CHOLESTEROL 150 mg/dL; CREATININE 0.8 mg/dL (0.4-1.0); GFR - MDRD 71 (>89); GLUCOSE 130 mg/dL (70-100); HDL CHOLESTEROL 72 mg/dL; LDL CHOLESTEROL,CALCULATED 58 mg/dL; LDL/HDL RATIO 0.8 (<4.4); POTASSIUM 4.8 mmol/L (3.5-5.0); SODIUM 143 mmol/L (135-145); TOTAL PROTEIN 7.1 g/dL (6.7-8.2); TRIGLYCERIDES 99 mg/dL; VLDL CHOLESTEROL 20 mg/dL
[2020-07-12 13:38] LABS: ESTIMATED AVERAGE GLUCOSE 148 mg/dL (70-100); HEMOGLOBIN A1c% 6.8 % (4.27-6.07)
== END 2020-07-12 08:57 | disposition home or self-care (01) ==
LOC: LAB 08:56
PROVIDERS: ATTEND Internal Medicine Cardiovascular Disease
DX: I10 Essential (primary) hypertension (principal); I25.10 Atherosclerotic heart disease of native coronary artery without angina pectoris; E11.9 Type 2 diabetes mellitus without complications
CPT/HCPCS: 36415; 80053; 80061; 83036; 83721; 84443; 85025

== ENCOUNTER 2022-10-26 08:50 | Outpatient (CLI) | payer MEDICARE, OTHER ==
[2022-10-26 09:09] LABS: BASOPHILS # (AUTO) 0.1 10^3/uL (0.0-0.1); BASOPHILS % (AUTO) 0.9 %; EOSINOPHILS # (AUTO) 0.2 10^3/uL (0.0-0.7); EOSINOPHILS % (AUTO) 2.5 %; HCT - HEMATOCRIT 42.9 % (37.0-47.0); HGB - HEMOGLOBIN 14.4 g/dL (12.0-16.0); LYMPHOCYTES # (AUTO) 1.7 10^3/uL (1.5-3.5); LYMPHOCYTES % (AUTO) 26.3 %; MEAN CORPUSCULAR HEMOGLOBIN 28.2 pg (27.0-31.0); MEAN CORPUSCULAR HGB CONC 33.6 g/dL (32.0-36.0); MEAN PLATELET VOLUME 11.1 fL (7.9-10.8); MONOCYTES # (AUTO) 0.6 10^3/uL (0.0-1.0); MONOCYTES % (AUTO) 8.6 %; NEUTROPHILS % (AUTO) 61.5 %; PLT - PLATELET COUNT 123 10^3/uL (130-450); RED BLOOD COUNT 5.11 10^6/uL (4.20-5.40); RED CELL DISTRIBUTION WIDTH 12.7 % (12.0-15.0); WHITE BLOOD COUNT 6.5 x10^3/uL (4.8-10.8)
[2022-10-26 09:32] LABS: ALBUMIN 4.6 g/dL (3.2-5.5); ALKALINE PHOSPHATASE 79 IU/L (42-121); ALT ALANINE AMINOTRANSFERASE 23 IU/L (10-60); AST ASPARTATE AMINOTRANSFERASE 24 IU/L (10-42); BILIRUBIN,TOTAL 0.6 mg/dL (0.2-1.0); BUN - BLOOD UREA NITROGEN 18 mg/dL (6-20); CARBON DIOXIDE - CO2 31 mmol/L (21-32); CHLORIDE 103 mmol/L (101-111); CHOL/HDL RATIO 2.4 (<4.4); CHOLESTEROL 132 mg/dL; CREATININE 0.8 mg/dL (0.6-1.3); GFR - MDRD 71 (>89); GLUCOSE 116 mg/dL (74-104); HDL CHOLESTEROL 54 mg/dL; LDL CHOLESTEROL,CALCULATED 55 mg/dL; POTASSIUM 4.5 mmol/L (3.5-4.5); SODIUM 139 mmol/L (135-145); TOTAL PROTEIN 6.9 g/dL (6.4-8.9); TRIGLYCERIDES 114 mg/dL (48-352); VLDL CHOLESTEROL 23 mg/dL
[2022-10-26 09:34] LABS: CREATININE,URINE 76.7 mg/dL; MICROALBUM/CREATININE RATIO,UR 10.4 ug/mg (<30.0); MICROALBUMIN,URINE 0.8 mg/dL
[2022-10-26 09:37] LABS: THYROID STIMULATING HORMONE 0.51 uIU/mL (0.34-5.60)
[2022-10-26 09:52] LABS: ESTIMATED AVERAGE GLUCOSE 154 mg/dL (70-100)
== END 2022-10-26 08:51 | disposition home or self-care (01) ==
LOC: LAB 08:50
PROVIDERS: ATTEND Internal Medicine
DX: I25.10 Atherosclerotic heart disease of native coronary artery without angina pectoris (principal); E11.9 Type 2 diabetes mellitus without complications; L65.9 Nonscarring hair loss, unspecified; L60.8 Other nail disorders; L29.8 Other pruritus
CPT/HCPCS: 36415; 80053; 80061; 82043; 82570; 83036; 83721; 84443; 85025

== ENCOUNTER 2022-10-26 08:52 | Outpatient (CLI) | payer MEDICARE, OTHER ==
--- NOTE | 2022-10-27 11:47 | Mammography Report ---
BILATERAL DIGITAL SCREENING MAMMOGRAM 3D/2D: 10/26/2022 CLINICAL: Routine screening. Comparison is made to exams dated: 03/26/2021 mammogram - [facility], 10/19/2018 mammogram , 06/29/2017 mammogram, 06/29/2016 mammogram, and 05/29/2015 mammogram - [facility]. Both breasts are almost entirely fatty (category a/<25% glandular tissue). There are benign calcifications in both breasts. There also are benign vascular calcifications in angie th breasts. No significant masses, calcifications, or other findings are seen in either breast. There has been no significant interval change. IMPRESSION: BENIGN There is no mammographic evidence of malignancy. A 1 year screening mammogram is recommended. Based on the Tyrer Cuzick model (a risk assessment model) the patients lifetime risk is 1.9% and her 10 year risk is 1.4%. According to the ACR, ACS, and NCCN guidelines, an annual breast MRI exam virgie g with mammogram is recommended if the patients lifetime risk is 20% or greater. This exam was interpreted at Station ID: [id number]. NOTE: For mammograms, a report in lay terms will be sent to the patient. Approximately 15% of breast malignancies will not be visualized mammographically. In the management of a palpable breast mass, a negative mammogram must not discourage biopsy of a clinically suspicious lesion. Electronically Signed By: Bhavesh torres/martin:10/26/2022 13:43:10 letter sent: No_Letter ACR BI-RADS Category 2: Benign Finding(s) 3342F PARENCHYMAL PATTERN: (F) - The breast(s) demonstrate(s) diffuse fatty replacement. BI-RADS CATEGORY: (2) - 2 Mammogram [id number] 1 year screening LATERALITY: (B)
== END 2022-10-26 08:53 | disposition home or self-care (01) ==
LOC: DI 08:52
PROVIDERS: ATTEND Internal Medicine
DX: Z12.31 Encounter for screening mammogram for malignant neoplasm of breast (principal)